=== PATIENT | male | born 1985 | race Caucasian/White ===

== ENCOUNTER 2024-02-07 11:34 | Day surgery (SDC) | payer OTHER, SELFPAY ==
--- NOTE | 2024-02-07 | PATH_ITS ---
[facility] Accession Number: [id number] No. of containers..01 Tissue . 01 Material submitted: . colon - COLON, POLYP 15cm . 01 Diagnosis: COLON, POLYP 15cm: Inflammatory polyp. No dysplasia identified. [facility] 02/09/20241248 Local . 01 Electronically signed: . Brendan Cordoba MD, Pathologist NPI- [id number] . 01 Gross description: . Received in formalin with two patient identifiers and polyp 15 cm, is a love to dark brown soft tissue fragment 0.9 x 0.7 x 1.3 cm. Inked blue, serially sectioned, and submitted entirely in cassette A1. (KB:[id number]) /AFSHAN 02/09/20241248 Local . 01 Pathologist provided ICD-10: K51.40 . 01 CPT . 780508 Specimen Comment: A courtesy copy of this report has been sent to [phone] Performed at: [address] [facility] [address], [place], [place] [id number] MD Brendan Cordoba MD Phone: [phone]
[2024-02-07 12:11] VITALS: BP 128/85; PULSE 79; RESP 18; TEMP 36.3; O2SAT 95
--- NOTE | 2024-02-07 12:17 | PM.OP.COLON ---
Operative Date/Time/Diagnoses Date of procedure: 02/07/24 Pre-op diagnosis: See indication and findings Procedure & Clinicians Study performed: Colonoscopy Indications: Hematochezia Surgeon: Avery Saurez Procedure Notes Procedure in detail: After informed consent was obtained the patient was placed in left lateral decubitus position. The video colonoscope was introduced the rectum slowly advanced cecum. Preparation was good. On slow withdrawal mucosa was carefully examined. The scope was removed. The patient tolerated procedure well. Blood loss none Complications none Sedation mac Findings 1. Large sigmoid colon polyp at 15 cm with the head being approximately 15 mm in size and the stalk being 20 cm long. The stalk was injected with [id number] epinephrine 2 cc for potential hemostasis and at the head of the stalk was removed with hot snare. 2. Otherwise negative colonoscopy to cecum I presume that bleeding is from this source at this appeared to be semi hemorrhagic. We will be in touch regarding the pathology and he should have colonoscopy again in 1-3 years
--- NOTE | 2024-02-07 12:18 | PM.HP.1 ---
History of Present Illness History of Present Illness Date Patient Seen: 02/07/24 Chief complaint: SDC Narrative: Hematochezia PFSH Social History Smoking Status: Never smoker Meds Home Medications and Allergies Home Medications Medication Instructions Recorded Confirmed Type meloxicam 15 mg tablet 15 mg PO DAILY 02/07/24 02/07/24 History tizanidine 2 mg tablet 2 mg PO BID 02/07/24 02/07/24 History Allergies Allergy/AdvReac Type Severity Reaction Status Date / Time No Known Drug Allergies Allergy Verified 02/07/24 11:58 Exam Vital Signs (past 8 hours): - 02/07/24 12:11 Temperature 97.3 F L Pulse Rate 79 Respiratory Rate 18 Blood Pressure 128/85 Pulse Oximetry 95 Oxygen Delivery Method Room Air Oxygen Delivery Method Room Air Narrative Exam Narrative: Oropharynx free of lesions Chest clear to auscultation percussion Cardiac exam reveals no S3 or murmur Assessment & Plan Assessment & Plan narrative: History of hematochezia. Need for colonoscopy for diagnosis. Found to have some small internal hemorrhoids at office visit. Risks, benefits, alternatives have been explained. Time-Based Coding :: [TOTAL MINUTES] spent with patient and on the chart (including review of chart, obtaining history, exam, reviewing outside data, placing orders, documenting exam and treatment plan, and counseling patient) on [DATE].
[2024-02-07] MEDS: EPINEPHrine 1 MG/ML SUBCUT (13:27)
[2024-02-07 13:39] VITALS: BP 115/75; PULSE 77; RESP 22; TEMP 36.6; O2SAT 94
[2024-02-07 13:43] VITALS: BP 114/77; PULSE 71; RESP 18; O2SAT 95
[2024-02-07 13:48] VITALS: BP 108/75; PULSE 66; RESP 19; O2SAT 94
[2024-02-07 13:54] VITALS: BP 112/81; PULSE 71; RESP 20; O2SAT 96
== END 2024-02-07 14:30 | disposition home or self-care (01) ==
PROVIDERS: Referring Provider Internal Medicine Gastroenterology; Visit Provider Internal Medicine Gastroenterology
PROC: 0DJD8ZZ Inspection of Lower Intestinal Tract, Via Natural or Artificial Opening Endoscopic (ICD-10-PCS; CPT 45378; principal; 2024-02-07 13:30)
DX: K92.1 Melena (principal); K51.40 Inflammatory polyps of colon without complications
CPT/HCPCS: 45381; 45385; J0171; J2704